=== PATIENT | male | born 1970 | race Caucasian/White ===

== ENCOUNTER 2022-06-08 21:08 | Emergency (ER) | payer OTHER ==
[~2022-06-08] VITALS: Ht 177.8 cm; Wt 95.0 kg
[~2022-06-08 21:08] MED LIST: LISI40TA13 MT; LORA-250 MT; NITR0.4T49 SL
[2022-06-08] MEDS ORDERED: ONDANSETRON 4MG ODT PO ONE (21:45)
[2022-06-08] MEDS ORDERED: KETOROLAC 30MG/ML VIAL IM ONE (23:15)
[2022-06-09 09:48] VITALS: BP 121/82
== END 2022-06-09 13:45 ==
LOC: ER 21:08
DX: S09.90XA Unspecified injury of head, initial encounter (principal); S13.9XXA Sprain of joints and ligaments of unspecified parts of neck, initial encounter; I10 Essential (primary) hypertension; I25.2 Old myocardial infarction; W18.39XA Other fall on same level, initial encounter; Y93.89 Activity, other specified; Y92.89 Other specified places as the place of occurrence of the external cause; Y99.8 Other external cause status; Z79.899 Other long term (current) drug therapy
CPT/HCPCS: 70450; 72125; 96372; 99285; J1885; Q0162; Z7610